=== PATIENT | female | born 1960 | race Caucasian/White ===

== ENCOUNTER 2018-06-11 09:04 | Emergency (ER) | payer BC ==
[2018-06-11 09:17] VITALS: BP 154/84
--- NOTE | 2018-06-11 10:17 | UC ---
Respiratory Complaint HPI - HPI Summary HPI Summary: IN-ROOM NOTE: This patient is a 57 year old F presenting to [facility] [place] with a chief complaint of a sore throat since yesterday morning. Patient reports cough and a headache behind R eye. Patient denies abdominal pain. She cannot remember the last time she had to take antibiotics. Her PCP is Dr. Lipsky. KHALIL NOTE: Vital signs stable. BP is 154/84. 8/10 discomfort: heavy smoker. Visit history noncontributory to present complaint. No home medications. NURSES NOTE: uri sx started yesterday - History of Current Complaint Chief Complaint: UCRespiratory Stated Complaint: RESP ISSUE Time Seen by Provider: 06/11/18 10:06 Hx Obtained From: Patient Onset/Duration: Lasting Days - Yesterday morning, Still Present Severity Initially: Severe Severity Currently: Severe Pain Intensity: 8 Pain Scale Used: 0-10 Numeric - Allergies/Home Medications Allergies/Adverse Reactions: Allergies Allergy/AdvReac Type Severity Reaction Status Date / Time No Known Allergies Allergy Verified 06/11/18 09:17 PMH/Surg Hx/FS Hx/Imm Hx Respiratory History: Pneumonia GI/ History: Gastroesophageal Reflux - Surgical History Surgical History: Yes Surgery Procedure, Year, and Place: PARTIAL HYSTERECTOMY. GALLBLADDER. APPY,t/ a - Family History Known Family History: Positive: Diabetes, Other - family has MRSA Negative: Hypertension - Social History Lives: With Family Alcohol Use: Rare Substance Use Type: None Smoking Status (MU): Heavy Every Day Tobacco Smoker Household Exposure Type: Cigarettes Review of Systems Respiratory: Cough, Other - Sore throat Gastrointestinal: Abdominal Pain - Denies Neurological: Headache All Other Systems Reviewed And Are Negative: Yes - Comments Additional Review of Systems Comments: POSITIVE: SORE THROAT, COUGH, HEADACHE NEGATIVE: ABDOMINAL PAIN Physical Exam - Summary Physical Exam Summary: Appearance: The patient is well-appearing, is in no pain distress, and is well- nourished. Eyes: Conjunctiva are clear. ENT: The hearing is grossly normal, POSTERIOR LYMPH PATCHES. NO ERYTHEMA. The TMs are normal. There is no muffled or hoarse voice. Neck: The neck is supple and there is no lymphadenopathy. Respiratory: INTERMITTENT COUGH. DIFFUSE BILATERAL WHEEZING, RALES, AND RONCHI. Cardiovascular: Heart is regular rate and rhythm. There is no murmur. Abdomen: The abdomen is soft and nontender. There is no organomegaly. Bowel sounds: present Musculoskeletal: Strength is intact. The patient moves all extremities. Neurological: The patient is alert. Motor and sensory examination grossly intact. Psychological: The patient displays age appropriate behavior Skin: Negative for rashes. Triage Information Reviewed: Yes Vital Signs: Initial Vital Signs Temp 96.7 F 06/11/18 09:13 Pulse 71 06/11/18 09:13 Resp 20 06/11/18 09:13 BP 154/84 06/11/18 09:13 Pulse Ox 98 06/11/18 09:13 Vital Signs Reviewed: Yes Diagnostic Evaluation - Laboratory O2 Sat by Pulse Oximetry: 98 Respiratory Course/Dx - Course Course Of Treatment: 57 y/o female with greater than 25 year history of smoking with cough, congestion, wheezing, ronchi, and a few rales, most probably has an exacerbation of COPD, although this diagnosis is not part of her history. I will treat her with Zithromax, Albuterol, a spacer, and prednisone for 3 days. The patient will watch for any increasing chest pain, temperature, or cough. She will be reevaluated as needed. Hypertensive BP reading of 154/84. - Differential Dx/Diagnosis Differential Diagnosis/HQI/PQRI: Bronchitis, Exacerbation Of COPD, Other - PNA Provider Diagnoses: exacerbation of COPD in a heavy smoker Discharge - Sign-Out/Discharge Documenting (check all that apply): Patient Departure - D/C All imaging exams completed and their final reports reviewed: No Studies - Discharge Plan Condition: Stable Disposition: HOME Prescriptions: Albuterol HFA INHALER* [Ventolin HFA Inhaler*] 1 - 2 puff INH Q4H #1 mdi MDD 8 inhalations a day Azithromycin TAB* [Zithromax TAB*] 250 mg PO DAILY #6 tab Inhaler, Assist Devices [Aerochamber Mv] 1 mis XX Q6HR #1 mis predniSONE [Prednisone 20 MG TAB] 20 mg PO TID #9 tab MDD 3 Patient Education Materials: COPD (Chronic Obstructive Pulmonary Disease) (DC) Referrals: Sarabjit KHALIL,Magalie Pino [Primary Care Provider] - Additional Instructions: WE DISCUSSED: 1. You blood pressure was 154/84. You should be seen in the next month to recheck your blood pressure. 2. You appear to have COPD. I have given U information about this condition. It comes from many years of smoking. You now has wheezing. I recommend that you use an albuterol inhaler and spacer as well as prednisone for 3 days. I've also given you Zithromax. 3. Use the inhaler 4 times a day 2 puffs each time for 3-7 days. If you develop any chest pain, shortness of breath, temperature or an increasing cough , call us or come in to be reevaluated. 4. Your cough should get better in the next 2-3 weeks. - Billing Disposition and Condition Condition: STABLE Disposition: Home - Attestation Statements Document Initiated by Scribe: Yes Documenting Scribe: Michael Negrete Provider For Whom Smileyibe is Documenting (Include Credential): Roc Beal MD Scribe Attestation: I, Michael Negrete, scribed for Roc Beal MD on 06/11/18 at 1033. Scribe Documentation Reviewed: Yes Provider Attestation: The documentation as recorded by the Michael ly accurately reflects the service I personally performed and the decisions made by me, Roc Beal MD
== END 2018-06-11 10:30 | disposition home or self-care (01) ==
LOC: UCEAST 09:04
DX: J44.1 Chronic obstructive pulmonary disease with (acute) exacerbation (principal); F17.210 Nicotine dependence, cigarettes, uncomplicated
CPT/HCPCS: 99212; G0463